=== PATIENT | male | born 1950 | race Caucasian/White ===

== ENCOUNTER 2019-08-18 00:46 | Day surgery (SDC) | payer MEDICARE, OTHER | END 2019-08-18 23:17 | disposition home or self-care (01) | LOC: WOUND 00:46 | DX: L97.912 Non-pressure chronic ulcer of unspecified part of right lower leg with fat layer exposed (principal); I87.2 Venous insufficiency (chronic) (peripheral); I83.009 Varicose veins of unspecified lower extremity with ulcer of unspecified site | CPT/HCPCS: G0463 ==

== ENCOUNTER 2019-08-25 00:31 | Day surgery (SDC) | payer MEDICARE, OTHER | END 2019-08-25 23:40 | disposition home or self-care (01) | LOC: WOUND 00:31 | DX: L97.912 Non-pressure chronic ulcer of unspecified part of right lower leg with fat layer exposed (principal); I87.2 Venous insufficiency (chronic) (peripheral); I83.018 Varicose veins of right lower extremity with ulcer other part of lower leg ==

== ENCOUNTER 2019-08-31 00:16 | Day surgery (SDC) | payer MEDICARE, OTHER | END 2019-08-31 23:09 | disposition home or self-care (01) | LOC: WOUND 00:16 | DX: L97.912 Non-pressure chronic ulcer of unspecified part of right lower leg with fat layer exposed (principal); I87.2 Venous insufficiency (chronic) (peripheral); I83.018 Varicose veins of right lower extremity with ulcer other part of lower leg ==

== ENCOUNTER 2019-09-18 00:23 | Day surgery (SDC) | payer MEDICARE, OTHER | END 2019-09-18 22:45 | disposition home or self-care (01) | LOC: WOUND 00:23 | DX: L97.912 Non-pressure chronic ulcer of unspecified part of right lower leg with fat layer exposed (principal); I87.2 Venous insufficiency (chronic) (peripheral); I83.018 Varicose veins of right lower extremity with ulcer other part of lower leg | CPT/HCPCS: G0463 ==

== ENCOUNTER 2021-10-30 19:06 | Inpatient (IN) | payer MEDICARE ==
[~2021-10-30] VITALS: Ht 185.4 cm; Wt 102.7 kg
[2021-10-30 22:09] LABS: BASOPHILS ABSOLUTE AUTO 0.07 K/mm3 (0.00-0.23); BASOPHILS PERCENT AUTO 0 % (0-2); EOSINOPHILS ABSOLUTE AUTO 0.09 K/mm3 (0.00-0.68); EOSINOPHILS PERCENT AUTO 1 % (0-6); IMMATURE GRAN ABSOLUTE AUTO 0.06 K/mm3 (0.00-0.10); IMMATURE GRAN PERCENT AUTO 0 % (0-1); LYMPHOCYTES ABSOLUTE AUTO 0.83 K/mm3 (0.84-5.20); LYMPHOCYTES PERCENT AUTO 5 % (21-46); MONOCYTES ABSOLUTE AUTO 1.05 K/mm3 (0.16-1.47); MONOCYTES PERCENT AUTO 6 % (4-13); Mean Corpuscular HGB 30.6 pg (26.0-34.0); Mean Corpuscular HGB Conc 34.1 g/dL (31.5-36.5); Mean Corpuscular Volume 90 fL (80-100); Mean Platelet Volume 10.6 fL (9.1-12.4); NEUTROPHILS ABSOLUTE AUTO 15.32 K/mm3 (1.96-9.15); NEUTROPHILS PERCENT AUTO 88 % (41-73); Platelet Count 228 K/mm3 (150-400); RDW Coefficient Variation 13.2 % (11.7-14.2); RDW Standard Deviation 43.4 fL (35.1-46.3); White Blood Cell Count 17.42 K/mm3 (4.00-11.30)
[2021-10-30 22:27] LABS: Albumin, Blood 3.9 g/dL (3.4-5.0); Albumin/Globulin Ratio 1.1 (0.8-1.8); Bilirubin, Total 0.3 mg/dL (0.1-1.0); Bun/Creatinine Ratio 17.7 (12.0-20.0); Calcium, Blood 8.8 mg/dL (8.5-10.1); Creatinine, Blood 1.13 mg/dL (0.60-1.20); Globulin, Blood 3.6 g/dL (2.2-4.0); Potassium, Blood 4.5 mmol/L (3.5-5.5); Total Protein, Blood 7.5 g/dL (6.4-8.2)
[2021-10-31 04:18] LABS: BASOPHILS ABSOLUTE AUTO 0.05 K/mm3 (0.00-0.23); BASOPHILS PERCENT AUTO 0 % (0-2); EOSINOPHILS ABSOLUTE AUTO 0.17 K/mm3 (0.00-0.68); EOSINOPHILS PERCENT AUTO 1 % (0-6); Hematocrit 41.1 % (37.0-53.0); Hemoglobin 13.7 g/dL (13.5-17.5); IMMATURE GRAN ABSOLUTE AUTO 0.04 K/mm3 (0.00-0.10); IMMATURE GRAN PERCENT AUTO 0 % (0-1); LYMPHOCYTES ABSOLUTE AUTO 1.13 K/mm3 (0.84-5.20); LYMPHOCYTES PERCENT AUTO 8 % (21-46); MONOCYTES ABSOLUTE AUTO 1.22 K/mm3 (0.16-1.47); MONOCYTES PERCENT AUTO 8 % (4-13); Mean Corpuscular HGB 30.3 pg (26.0-34.0); Mean Corpuscular HGB Conc 33.3 g/dL (31.5-36.5); Mean Corpuscular Volume 91 fL (80-100); Mean Platelet Volume 10.6 fL (9.1-12.4); NEUTROPHILS ABSOLUTE AUTO 12.24 K/mm3 (1.96-9.15); NEUTROPHILS PERCENT AUTO 83 % (41-73); Platelet Count 212 K/mm3 (150-400); RDW Coefficient Variation 13.2 % (11.7-14.2); RDW Standard Deviation 44.6 fL (35.1-46.3); Red Blood Cell Count 4.52 M/mm3 (4.30-5.90); White Blood Cell Count 14.85 K/mm3 (4.00-11.30)
[2021-10-31 04:38] LABS: Albumin, Blood 3.4 g/dL (3.4-5.0); Bilirubin, Total 0.4 mg/dL (0.1-1.0); Bun/Creatinine Ratio 22.4 (12.0-20.0); Creatinine, Blood 0.98 mg/dL (0.60-1.20); Globulin, Blood 3.5 g/dL (2.2-4.0); Potassium, Blood 4.1 mmol/L (3.5-5.5); Total Protein, Blood 6.9 g/dL (6.4-8.2)
--- NOTE | 2021-10-31 04:49 | NUR ---
SHIFT SUMMARY PT A&OX4, PLEASANT AND COOPERATIVE. VVS THROUGHOUT SHIFT. PT DECLINED PAIN MEDICATION. PT NPO SINCE 0000, AWAITING ORTHOPEDICS CONSULT THIS MORNING. CALL LIGHT WITHIN REACH.
--- NOTE | 2021-10-31 10:16 | NUR ---
Spiritual Care Request. Pt. is awake in bed and welcomes my visit. Pt. is pleasant and when he is still, displays evidence of being comfortable. Estbalish rapport and facilitate a life review. Pt. displays evidence of engagement and hope. Pt. is awaiting surgeery on his hip. Prayed with Pt. Pt. verbalized gratitude for the spiritual care visit.
[2021-10-31 10:31] LABS: SARS-Cov-2 (COVID-19) PCR, MMC NEGATIVE (NEGATIVE)
--- NOTE | 2021-10-31 12:49 | NUR ---
PT BROUGHT TO DS IN BED. History, Chart, Medications and Allergies reviewed before start of procedure.Patient confirms NPO status and agrees with scheduled surgery. Pre-Op teaching done. Pt verbalizes understanding.
--- NOTE | 2021-10-31 17:09 | NUR ---
ARRIVAL TO UNIT PT ARRIVED FROM PACU AT 1700. PT SATS 95% ON 2L WILL WEAN DOWN. INCENTIVE SPIROMETERY PROVIDED AND EDUCATION GIVEN. PT TOLERATING PO WELL NO NAUSEA. DRESSING CDI, BRUISING AROUND INCISION. PT DENIES PAIN AT THIS TIME. CALL LIGHT GIVEN. VITAL SIGNS STABLE.
--- NOTE | 2021-11-01 07:09 | NUR ---
SUMMARY PT ALERT.DENIED NEED FOR PAIN MEDS TONIGHT.REPORTS TINGLING TO L TOES COMPLETELY RESOLVED. CSM REMAINS INTACT TO EXT.INC CLEAR AND INTACT.ICE TO L KNEE.PT HOPING TO WORK WITH PT TODAY AND DISCHARGE HOME.
--- NOTE | 2021-11-01 11:30 | NUR ---
DISCHARGE SUMMARY PT A&OX4, VSS/RA, FREDDY PO, VOIDING WELL, AMB SBA FWW, UP TO CHAIR/BRP, IV DC'D. LEFT FLOOR VIA WC TO GO HOME WITH , WITH ALL PERSONAL POSSESSIONS INCLUDING DC PACKET AND 1 NARC SCRIPT. DC INS PROVIDED. PT REP UNDERSTANDING THOSE INSTRUCTIONS INCLUDING FU WITH SURGEON AND PCP.
== END 2021-11-01 11:29 | disposition home health service (06) | DRG 522 ==
LOC: ER 19:06 → SURS 23:12
PROVIDERS: Family Medicine; Orthopaedic Surgery; Physician Assistant; ADMIT Internal Medicine
PROC: 0SRB04A Replacement of Left Hip Joint with Ceramic on Polyethylene Synthetic Substitute, Uncemented, Open Approach (ICD-10-PCS; principal; 2021-10-31 12:30)
DX: S72.002A Fracture of unspecified part of neck of left femur, initial encounter for closed fracture (principal); S80.02XA Contusion of left knee, initial encounter; D72.829 Elevated white blood cell count, unspecified; Z20.822 Contact with and (suspected) exposure to COVID-19; M51.9 Unspecified thoracic, thoracolumbar and lumbosacral intervertebral disc disorder; Z98.890 Other specified postprocedural states; W31.89XA Contact with other specified machinery, initial encounter
CPT/HCPCS: 36415; 72170; 73502; 73560-LT; 80053; 85025; 93005; 93010; 97110; 97161; 97530; 99285-25; A9270; C1776; J0171; J0690; J0735; J1100; J1885; J2250; J2270; J2405; J2704; J2795; J3010; J7030; J7120; U0004

== ENCOUNTER 2022-01-20 06:50 | Day surgery (SDC) | payer MEDICARE, OTHER ==
[~2022-01-20] VITALS: Ht 182.9 cm; Wt 104.7 kg
--- NOTE | 2022-01-20 07:32 | NUR ---
History, Chart, Medications and Allergies reviewed before start of procedure. Lungs clear T/O to Auscultation. Patient confirms NPO status and agrees with scheduled surgery. Pre-Op teaching done. Pt verbalizes understanding. Patient reports completing Chlorhexadine shower X2 prior to admission to hospital.
--- NOTE | 2022-01-20 17:39 | NUR ---
SUMMARY NO ACUTE CHANGES SINCE ARRIVING TO FLOOR FROM PACU. PT SITTING UP IN RECLINER W/POLAR PACK ON. TXA COMPLETED PER ORDERS. ABX AND PAIN MEDS ADMINISTERED PER ORDERS. PT REPORTS PAIN MINIMAL, RATING 3/10 AND STATING IT FEELS MORE LIKE "PRESSURE" THAN PAIN. WORKED WITH THERAPY. VOIDING W/O DIFFICULTY. TOLERATING PO INTAKE. CALL LIGHT IN REACH.
[2022-01-21 05:31] LABS: BASOPHILS ABSOLUTE AUTO 0.01 K/mm3 (0.00-0.23); BASOPHILS PERCENT AUTO 0 % (0-2); EOSINOPHILS ABSOLUTE AUTO 0.04 K/mm3 (0.00-0.68); EOSINOPHILS PERCENT AUTO 0 % (0-6); Hemoglobin 12.6 g/dL (13.5-17.5); IMMATURE GRAN ABSOLUTE AUTO 0.02 K/mm3 (0.00-0.10); IMMATURE GRAN PERCENT AUTO 0 % (0-1); LYMPHOCYTES ABSOLUTE AUTO 0.86 K/mm3 (0.84-5.20); LYMPHOCYTES PERCENT AUTO 8 % (21-46); MONOCYTES ABSOLUTE AUTO 1.25 K/mm3 (0.16-1.47); MONOCYTES PERCENT AUTO 12 % (4-13); Mean Corpuscular HGB Conc 32.3 g/dL (31.5-36.5); Mean Corpuscular Volume 87 fL (80-100); Mean Platelet Volume 10.7 fL (9.1-12.4); NEUTROPHILS ABSOLUTE AUTO 8.06 K/mm3 (1.96-9.15); NEUTROPHILS PERCENT AUTO 79 % (41-73); Platelet Count 219 K/mm3 (150-400); RDW Coefficient Variation 13.5 % (11.7-14.2); RDW Standard Deviation 42.2 fL (35.1-46.3); White Blood Cell Count 10.24 K/mm3 (4.00-11.30)
[2022-01-21 05:47] LABS: Bun/Creatinine Ratio 20.8 (12.0-20.0); Calcium, Blood 8.6 mg/dL (8.5-10.1); Creatinine, Blood 0.87 mg/dL (0.60-1.20); Potassium, Blood 4.2 mmol/L (3.5-5.5)
--- NOTE | 2022-01-21 06:03 | NUR ---
SHIFT SUMMARY NO ACUTE CHANGES. PT RESTED WELL T/O NIGHT. TYLENOL/TORADOL FOR PAIN MANAGEMENT. DRESSING TO L KNEE REMAINS CDI WITH POLAR PACK IN PLACE. UP WITH 1 ASSIST USING FWW/GB TO AMBULATE. USES CALL LIGHT APPROPRIATELY.
[2022-01-21] MEDS ORDERED: Percocet 5-3251 EACH PO (08:51)
[2022-01-21] MEDS ORDERED: ASPI81CH PO (08:52)
--- NOTE | 2022-01-21 10:32 | NUR ---
DISCHARGE PATIENT CLEARED THERAPY WELL. EATING, DRINKING, & VOIDING WELL. AMBULATING WELL WITH 1 ASSIST W/ FWW & GB. PAIN MANAGED PER EMAR. DISCUSSED DISCHARGE INSTRUCTIONS & SENT WITH PATIENT. ALSO SENT SCRIPTS, POALR PACK, & EXTRA AQUACEL DRESSINGS WITH PATENT. ESCORTED OUT VIA W/C.
== END 2022-01-21 10:19 | disposition home or self-care (01) ==
LOC: ORSCMMR 06:50 → ORD 08:15 → ORSCMMR 08:15 → SURS 10:58 → ORSCMMR 01-21 10:19
PROVIDERS: Orthopaedic Surgery
PROC: 0SRD0JA Replacement of Left Knee Joint with Synthetic Substitute, Uncemented, Open Approach (ICD-10-PCS; principal; 2022-01-20 08:15)
DX: M17.12 Unilateral primary osteoarthritis, left knee (principal)
CPT/HCPCS: 36415; 73560-LT; 80048; 85025; 97110; 97116; 97162; 97530; A9270; C1776; J0171; J0690; J0735; J1100; J1885; J2250; J2405; J2704; J2795; J3010; J7120

== ENCOUNTER 2022-03-03 06:09 | Day surgery (SDC) | payer OTHER, MEDICARE ==
[~2022-03-03] VITALS: Ht 185.4 cm; Wt 102.8 kg
[~2022-03-03 06:09] MED LIST: ASPI81CH PO; Percocet 5-3251 EACH PO
--- NOTE | 2022-03-03 06:47 | NUR ---
Ambulatory in [facility] warming gown applied. History, Chart, Medications and Allergies reviewed before start of procedure.Lungs clear T/O to Auscultation. Patient confirms NPO status and agrees with scheduled surgery. Patient confirms NPO status and agrees with scheduled surgery. Pre-Op teaching done. Pt verbalizes understanding. Patient States Post-Procedure ride home has been arranged. Patient reports completing Chlorhexadine shower X2 prior to admission to hospital.
--- NOTE | 2022-03-03 08:43 | NUR ---
Patient up to Ambulate independently. Gait steady. Discharge instructions reviewed with patient. Patient verbalizes understanding. Copy given to patient to take home. Discharged via wheelchair to private car for ride home.
== END 2022-03-03 22:39 | disposition home or self-care (01) ==
LOC: ORD 06:09 → ORSCMMR 06:10 → ORD 10:15
PROVIDERS: Orthopaedic Surgery
PROC: 0SSDXZZ Reposition Left Knee Joint, External Approach (ICD-10-PCS; principal; 2022-03-03 07:30)
DX: M24.662 Ankylosis, left knee (principal); M17.12 Unilateral primary osteoarthritis, left knee; Z96.642 Presence of left artificial hip joint
CPT/HCPCS: J2001; J2704; J7120

== ENCOUNTER 2022-04-28 08:48 | Day surgery (SDC) | payer MEDICARE, OTHER ==
[~2022-04-28] VITALS: Ht 185.4 cm; Wt 104.0 kg
--- NOTE | 2022-04-28 15:41 | NUR ---
SHIFT SUMMARY PT S/P R TKA, AQUACEL & ALEK WRAP CDI, TEDS/SCDS/POLAR YUNG ON, SPINAL ANESTHESIA, AWAITING FULL SENSATION, DENIES N&T AND DENIES PAIN, REPOSITIONS SELF. FREDDY PO. AWAITING POST OP VOID. LWRIST 18G IVF @ 70 MLS/HR. GAVE SCRIPTS, SHE PLANS TO RETURN IN A.M. WILL REPORT TO ONCOMING NOC RN.
[2022-04-29 06:18] LABS: BASOPHILS ABSOLUTE AUTO 0.01 K/mm3 (0.00-0.23); BASOPHILS PERCENT AUTO 0 % (0-2); EOSINOPHILS ABSOLUTE AUTO 0.01 K/mm3 (0.00-0.68); EOSINOPHILS PERCENT AUTO 0 % (0-6); Hematocrit 41.4 % (37.0-53.0); Hemoglobin 13.6 g/dL (13.5-17.5); IMMATURE GRAN ABSOLUTE AUTO 0.06 K/mm3 (0.00-0.10); IMMATURE GRAN PERCENT AUTO 0 % (0-1); LYMPHOCYTES ABSOLUTE AUTO 1.03 K/mm3 (0.84-5.20); LYMPHOCYTES PERCENT AUTO 7 % (21-46); MONOCYTES ABSOLUTE AUTO 0.68 K/mm3 (0.16-1.47); MONOCYTES PERCENT AUTO 5 % (4-13); Mean Corpuscular HGB Conc 32.9 g/dL (31.5-36.5); Mean Corpuscular Volume 85 fL (80-100); Mean Platelet Volume 10.8 fL (9.1-12.4); NEUTROPHILS ABSOLUTE AUTO 12.63 K/mm3 (1.96-9.15); NEUTROPHILS PERCENT AUTO 88 % (41-73); Platelet Count 259 K/mm3 (150-400); RDW Coefficient Variation 15.7 % (11.7-14.2); RDW Standard Deviation 48.8 fL (35.1-46.3); Red Blood Cell Count 4.86 M/mm3 (4.30-5.90); White Blood Cell Count 14.42 K/mm3 (4.00-11.30)
[2022-04-29 06:39] LABS: Bun/Creatinine Ratio 20.3 (12.0-20.0); Calcium, Blood 8.8 mg/dL (8.5-10.1); Creatinine, Blood 0.84 mg/dL (0.60-1.20); Potassium, Blood 4.7 mmol/L (3.5-5.5)
--- NOTE | 2022-04-29 06:43 | NUR ---
VIDEO GAME DEVELOPER SUMMARY POD 0 FOR R TKA. PT HAS AMBULATED MULITPLE TIMES THROUGH THE NIGHT AND HAS REPORTED MINIMAL PAIN. PAIN CONTROLLED WITH SCHEDULED TORADOL AND TYLENOL. PT HAS VOIDED SEVERAL TIMES AND TOLERATED PO WITH NO ISSUE. PT TO HAVE PHYSICAL THERAPY LATER TODAY. VSS, WILL CONTINUE TO MONITOR.
[2022-04-29] MEDS ORDERED: Percocet 5-3251 EACH PO (07:48)
[2022-04-29] MEDS ORDERED: ASPI81CH PO (07:48)
--- NOTE | 2022-04-29 10:30 | NUR ---
DISCHARGE SUMMARY PT A&OX4, VSS/RA, FREDDY PO, VOIDING, PAIN MANAGED, AMB SBA FWW & GB TO BRP, UP TO CHAIR, DRESSED SELF, IV DC'D. DC INS PROVIDED. PT REP UNDERSTANDING THOSE INSTRUCTIONS INCLUDING FU WITH PT AND SURGEON, DRESSING CHANGES, OK TO SHOWER, FWW WITH ALL AMB, TAKE SHORT FREQ AMB W/REST PERIODS ICED/ELEVATED. LEFT FLOOR VIA WC WITH APPLIANCE SERVICE TECHNICIAN TO GO HOME WITH , WITH ALL PERSONAL POSSESSIONS INCLUDING DC INS AND AQUACEL DRESSINGS.
== END 2022-04-29 10:45 | disposition home or self-care (01) ==
LOC: ORSCMMR 08:48 → ORD 10:00 → ORSCMMR 10:00 → ORD 11:00 → SURS 14:00 → ORSCMMR 04-29 10:45
PROVIDERS: Orthopaedic Surgery
PROC: 8E0Y0CZ Robotic Assisted Procedure of Lower Extremity, Open Approach (ICD-10-PCS; principal; 2022-04-28 11:00)
PROC: 0SRC0JA Replacement of Right Knee Joint with Synthetic Substitute, Uncemented, Open Approach (ICD-10-PCS; principal; 2022-04-28 11:00)
DX: M17.11 Unilateral primary osteoarthritis, right knee (principal)
CPT/HCPCS: 27447; 20985; S2900; 36415; 73560-RT; 80048; 85025; 97110; 97116; 97162; A9270; C1776; J0171; J0690; J0735; J1100; J1885; J2250; J2370; J2405; J2704; J2795; J3010; J7120